=== PATIENT | female | born 1935 | race Hispanic/Latino ===

== ENCOUNTER 2021-02-27 09:19 | Observation (INO) | payer OTHER, MEDICARE ==
[~2021-02-27] VITALS: Ht 149.9 cm; Wt 41.7 kg
[2021-02-27 11:58] LABS: BASOPHILS % (AUTO) 0.2 % (0.0-5.0); EOSINOPHILS % (AUTO) 0.4 % (0.0-8.0); HEMATOCRIT 22.3 % (36-48); LYMPHOCYTES % (AUTO) 3.4 % (21.0-51.0); MEAN CORPUSCULAR HEMOGLOBIN 23.4 pg (27.0-33.0); MEAN CORPUSCULAR HGB CONC 31.4 g/dL (32.0-36.0); MEAN CORPUSCULAR VOLUME 74.6 fL (79-99); MONOCYTES % (AUTO) 1.4 % (3.0-13.0); NEUTROPHILS % (AUTO) 94.1 % (40.0-77.0); PLATELET COUNT (AUTO) 421 K/uL (130-400); RED BLOOD CELL COUNT(AUTO) 2.99 MIL/uL (4.00-5.50); RED CELL DISTRIBUTION WIDTH 16.5 % (11.0-15.5); WHITE BLOOD COUNT (AUTO) 24.2 K/uL (4.8-10.8)
[2021-02-27 12:10] LABS: ALBUMIN 1.7 g/dL (3.5-5.0); BILIRUBIN,TOTAL 0.5 mg/dL (0.2-1.0); CREATININE 2.5 mg/dL (0.5-1.5); TOTAL PROTEIN, SERUM 5.4 g/dL (6.0-8.3)
[2021-02-27] MEDS ORDERED: 0.9% NACL 500ML IV.SOLN 500 ML IV ONE (13:00)
[2021-02-27] MEDS ORDERED: LACTULOSE 20 GM/30 ML UDCUP PO PRN (14:00)
[2021-02-27] MEDS ORDERED: ONDANSETRON 4MG INJ IVP PRN ×2 (14:00→22:00)
[2021-02-27] MEDS ORDERED: ACETAMINOPHEN 650 MG SUPPOSITORY RC PRN ×2 (14:00→22:00)
[2021-02-27] MEDS ORDERED: IPRATROPIUM/ALBUTEROL SULFATE 3 ML SOLUTION IH ONE ×2 (14:00→16:13)
[2021-02-27] MEDS ORDERED: POTASSIUM CHLORIDE 10MEQ/100ML 100 ML IV PRN (14:00)
[2021-02-27] MEDS ORDERED: ACETAMINOPHEN 325 MG TAB PO PRN (14:00)
[2021-02-27] MEDS ORDERED: 0.9%NACL 1000ML 1,000 ML IV SCH (14:00)
[2021-02-27] MEDS ORDERED: LIDOCAINE HCL-MPF 1% 2ML VIAL IV PRN (14:00)
[2021-02-27 14:03] LABS: INR 1.22 (0.85-1.15); PROTHROMBIN TIME 13.1 SEC (9.6-11.6)
[2021-02-27 14:05] LABS: PARTIAL THROMBOPLASTIN TIME 31.6 SEC (26.3-35.5)
[2021-02-27 14:07] LABS: HEMATOCRIT 21.8 % (36-48)
[2021-02-27 14:32] LABS: % IRON SATURATION 7.4 % (22-44)
[2021-02-27] MEDS: ZOSYN 3.375GM +NS 50ML IV SCH (14:59)
[2021-02-27] MEDS ORDERED: IPRATROPIUM/ALBUTEROL SULFATE 3 ML SOLUTION IH SCH (18:00)
[2021-02-27 20:16] LABS: HEMATOCRIT 30.1 % (36-48)
[2021-02-27] MEDS ORDERED: MORPHINE 2 MG SYG IVP PRN ×2 (22:00)
[2021-02-27] MEDS ORDERED: NOREPINEPHRIN 4MG/NS 250ML 250 ML IV PRN (22:00)
[2021-02-27] MEDS ORDERED: 0.9%NACL 1000ML 1,434 ML IV ONE (22:00)
[2021-02-27] MEDS ORDERED: IPRATROPIUM/ALBUTEROL SULFATE 3 ML SOLUTION IH PRN (22:00)
[2021-02-27 23:00] LABS: APPEARANCE,URINE CLEAR (CLEAR); BILIRUBIN,URINE MODERATE (NEGATIVE); COLOR,URINE YELLOW (YELLOW); GLUCOSE, URINE (UA) NEGATIVE (NEGATIVE); KETONES,URINE 5 mg/dL (NEGATIVE); LEUKOCYTE ESTERASE ,URINE SMALL (NEGATIVE); NITRATE,URINE NEGATIVE (NEGATIVE); OCCULT BLOOD,URINE NEGATIVE (NEGATIVE); PROTEIN,URINE NEGATIVE (NEGATIVE); UROBILINOGEN,URINE 0.2 mg/dL (0.2-1.0)
[2021-02-27 23:07] LABS: BACTERIA,URINE Moderate /HPF (None Seen); SQUAMOUS EPITHELIAL CELL,UR Moderate /HPF (0-2)
[2021-02-28 00:50] VITALS: BP 106/42
[2021-02-28] MEDS: ZOSYN 3.375GM +NS 50ML IV SCH ×2 (02:00→14:42)
[2021-02-28 04:24] VITALS: BP 112/34
[2021-02-28 08:00] VITALS: BP 114/36
[2021-02-28 11:59] VITALS: BP 100/32
[2021-02-28 16:00] VITALS: BP 101/30
== END 2021-02-28 20:00 ==
LOC: EDH 09:19 → EDHIP 13:38 → 3AH 02-28 00:50
PROVIDERS: ADMIT Internal Medicine Critical Care Medicine; ATTEND Internal Medicine Critical Care Medicine
DX: A41.9 Sepsis, unspecified organism (principal); Z20.822 Contact with and (suspected) exposure to COVID-19; R65.21 Severe sepsis with septic shock; N17.9 Acute kidney failure, unspecified; J18.9 Pneumonia, unspecified organism; I95.9 Hypotension, unspecified; I10 Essential (primary) hypertension; K92.2 Gastrointestinal hemorrhage, unspecified; D64.9 Anemia, unspecified; R10.9 Unspecified abdominal pain; R11.2 Nausea with vomiting, unspecified; R19.7 Diarrhea, unspecified; G30.9 Alzheimer's disease, unspecified; F02.80 Dementia in other diseases classified elsewhere, unspecified severity, without behavioral disturbance, psychotic disturbance, mood disturbance, and anxiety; T39.395A Adverse effect of other nonsteroidal anti-inflammatory drugs [NSAID], initial encounter; Z66 Do not resuscitate; Z90.710 Acquired absence of both cervix and uterus; Z51.5 Encounter for palliative care; Z79.899 Other long term (current) drug therapy
CPT/HCPCS: 36415; 71045; 71250; 74176; 80053; 81001; 82150; 82550 ×2; 83540; 83550; 83690; 83874 ×2; 84484 ×2; 85014 ×2; 85018 ×2; 85025; 85610; 85730; 86850; 86900; 86901; 86923; 87077; 87088; 87186; 87635; 87804 ×2; 93005; 94640 ×2; 94664; 94667 ×2; 96361 ×3; 96365; 96366 ×2; 99285; G0378 ×30; J2543 ×2; J3490; J7030; J7040; P9016